=== PATIENT | female | born 1975 | race Two or more races ===

== ENCOUNTER 2024-09-25 18:42 | Emergency (ER) | payer MEDICAID, OTHER ==
[~2024-09-25] VITALS: Ht 172.7 cm; Wt 72.7 kg
--- NOTE | 2024-09-25 19:03 | ED.PDOC ---
History of Present Illness HPI Comments 48 year old female who came to ER via EMS for dizziness. Patient has history of hypertension, diabetes and dyslipidemia. States about an hour ago, relaxing at home, watching television, when she developed sudden onset dizziness, described as the room spinning, followed by bouts of nausea and vomiting. Patient was given Zofran EN route to the ER Chief Complaint: Dizziness Time Seen by MD: 19:03 Reviewed Notes: Manufacture Specialist Notes Allergies: Coded Allergies: Losartan (Verified Allergy, Unknown, 09/25/24) Metformin (Verified Allergy, Unknown, 09/25/24) Home Meds Active Scripts Potassium Chloride (Potassium Chloride ER) 10 Meq Tab, 10 MEQ PO BID for 10 Days, #20 TAB Prov:AUDELIA SHAH MD 09/25/24 Meclizine HCl (Meclizine) 25 Mg Chw, 25 MG PO Q6HP PRN, #30 CHW Prov:AUDELIA SHAH MD 09/25/24 Information Source: Patient, Emergency Med Personnel Mode of Arrival: EMS Severity: Moderate Timing: Minutes Duration: Since onset Past Medical History PAST MEDICAL HISTORY: Anxiety, DM, High Lipids, HTN Surgical History: Denies all surgeries 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 Family History Family History: Reviewed,noncontributory to illness Social History Smoker: Non-Smoker Alcohol: Denies ETOH Use Drugs: Denies Drug Use Lives In: Home Constitutional: denies: chills, diaphoresis, fatigue, fever, malaise, sweats, weakness, others EENTM: denies: blurred vision, double vision, ear bleeding, ear discharge, ear drainage, ear pain, ear ringing, eye pain, eye redness, hearing loss, mouth pain, mouth swelling, nasal discharge, nose bleeding, nose congestion, nose pain, photophobia, tearing, throat pain, throat swelling, voice changes, others Respiratory: denies: cough, hemoptysis, orthopnea, SOB at rest, shortness of breath, SOB with excertion, stridor, wheezing, others Cardiovascular: denies: chest pain, dizzy spells, diaphoresis, Dyspnea on exertion, edema, irregular heart beat, left arm pain, lightheadedness, palpita tions, PND, syncope, others Gastrointestinal: reports: nausea, vomiting; denies: abdomen distended, abdominal pain, blood streaked bowels, constipated, diarrhea, dysphagia, difficulty swallowing, hematemesis, melena, poor appetite, poor fluid intake, rectal bleeding, rectal pain, others Genitourinary: denies: abnormal vagina bleeding, burning, dyspareunia, dysuria, flank pain, frequency, hematuria, incontinence, pain, , vagina discharge, urgency, others Neurological: reports: dizziness; denies: fainting, headache, left sided numbness, left sided weakness, numbness, paresthesia, pre-existing deficit, right sided numbness, right sided weakness, seizure, speech problems, tingling, tremors, weakness, others Musculoskeletal: denies: back pain, gout, joint pain, joint swelling, muscle pain, muscle stiffness, neck pain, others Integumetry: denies: bruises, change in color, change in hair/nails, dryness, laceration, lesions, lumps, rash, wounds, others Allergic/Immunocompromised: denies: Difficulty Healing, Frequent Infections, Hives, Itching, others Hematologic/Lymphatic: denies: anemia, blood clots, easy bleeding, easy bruising, swollen glands, others Endocrine: denies: excessive hunger, excessive sweating, excessive thirst, excessive urination, flushing, intolerance to cold, intolerance to heat, unexplained weight gain, unexplained weight loss, others Psychiatric: denies: anxiety, bipolar disorder, depression, hopeless, panic disorder, schizophrenia, sleepless, suicidal, others Physical Exam General Appearance: No Apparent Distress, Normal HEENT: Normal ENT Inspection, Pharynx Normal, TMs Normal Neck: Full Range of Motion, Non-Tender, Normal, Normal Inspection Respiratory: Chest Non-Tender, Lungs Clear, No Accessory Muscle Use, No Respiratory Distress, Normal Breath Sounds Cardiovascular: No Edema, No JVD, No Murmur, No Gallop, Normal Peripheral Pulses, Regular Rate/Rhythm Breast Exam: Deferred Gastrointestinal: No Organomegaly, Non Tender, No Pulsatile Mass, Normal Bowel Sounds, Soft Genitalia: Deferred Pelvic: Deferred Rectal: Deferred Extremities: No calf tenderness, Normal capillary refill, Normal inspection, Normal range of motion, Non-tender, No pedal edema Musculoskeletal : Apperance: Normal Neurologic: Alert, rn perinatal II-XII nml as Tested, No Motor Deficits, Normal Affect, Normal Mood, No Sensory Deficits Cerebellar Function: Normal Reflexes: Normal Skin: Dry, Normal Color, Warm Lymphatic: No Adenopathy Was a procedure done? Was a procedure done?: No EKG EKG : Pulse Rate (adult): 58 Cardiac Rhythm: NSR Differential Dx Considerations may include: Anemia, electrolyte imbalance, dizziness, dehydration, vertigo, anxiety X-Ray, Labs, Meds, VS Vital Signs Date Time Temp Pulse Resp B/P (MAP) Pulse Ox O2 Delivery O2 Flow Rate FiO2 09/25/24 20:38 61 15 96 Room Air 09/25/24 20:38 97.9 61 15 144/81 (102) 96 97.9 09/25/24 19:03 58 09/25/24 18:57 58 09/25/24 18:44 98.9 68 14 128/88 100 98.9 Lab Test 09/25/24 19:16 Range/Units White Blood Count 8.9 4.4-10.8 10^3/uL Red Blood Count 4.73 4.0-5.20 10^6/uL Hemoglobin 14.4 12.2-16.2 g/dL Hematocrit 41.2 36.0-46.0 % Mean Corpuscular Volume 86.9 80.0-100.0 fL Mean Corpuscular Hemoglobin 30.4 28.0-32.0 pg Mean Corpuscular Hemoglobin Concent 34.9 32.0-36.0 g/dL Red Cell Distribution Width 13.7 11.8-14.3 % Platelet Count 259 140-450 10^3/uL Mean Platelet Volume 7.9 6.9-10.8 fL Neutrophils (%) (Auto) 61.5 37.0-80.0 % Lymphocytes (%) (Auto) 27.7 10.0-50.0 % Monocytes (%) (Auto) 7.2 0.0-12.0 % Eosinophils (%) (Auto) 2.8 0.0-7.0 % Basophils (%) (Auto) 0.8 0.0-2.0 % Neutrophils # (Auto) 5.5 1.6-8.6 10 ^3/uL Lymphocytes # (Auto) 2.5 0.4-5.4 10 ^3/uL Monocytes # (Auto) 0.6 0-1.3 10 ^3/uL Eosinophils # (Auto) 0.2 0-0.8 10 ^3/uL Basophils # (Auto) 0.1 0-0.2 10 ^3/uL Nucleated Red Blood Cells 0.1 % Sodium Level 137 136-145 mmol/L Potassium Level 3.1 L 3.5-5.1 mmol/L Chloride Level 101 98-107 mmol/L Carbon Dioxide Level 27 20-31 mmol/L Anion Gap 9 5-15 Blood Urea Nitrogen 17 9-23 mg/dL Creatinine 0.57 0.550-1.02 mg/dL Glomerular Filtration Rate Calc 111 >90 mL/min BUN/Creatinine Ratio 29.8 H 10.0-20.0 Serum Glucose 121 H 74-106 mg/dL Calcium Level 9.0 8.7-10.4 mg/dL Magnesium Level 2.1 1.6-2.6 mg/dL Total Bilirubin 2.1 H 0.2-1.0 mg/dL Aspartate Amino Transferase (AST) 31 13-40 U/L Alanine Aminotransferase (ALT) 53 H 7-40 U/L Alkaline Phosphatase 86 46-116 U/L Total Protein 7.4 5.7-8.2 g/dL Albumin 4.6 3.2-4.8 g/dL Current Medications Medications (Trade) Dose Ordered Sig/Ofelia Route Start Time Stop Time Status Last Admin Meclizine HCl (Antivert Tablet) 25 mg ONCE ONCE PO 09/25/24 19:00 09/25/24 19:01 DC 09/25/24 19:33 Potassium Chloride (Klor-Con Tablet) 20 meq ONCE ONCE PO 09/25/24 20:30 09/25/24 20:31 DC 09/25/24 20:37 Time of 1ST Reevaluation: 19:01 Reevaluation 1ST: Unchanged Patient Education/Counseling: Diagnosis, Treatment Family Education/Counseling: No Family Present SEPSIS Sepsis Screen Date sepsis recognized/suspect: Sep 25, 2024 Time Sepsis recognized/suspect: 1851 Recent Procedure: No On Antibiotic Therapy: No Respiratory Rate >20: No Heart Rate >90: No Temp<36 C (96.8 F) or >38.3 C: No SBP <90 or MAP <65 mmHG: No New Acute Mental Status Change: No Is the patient on CPAP, BIPAP,: No Physician Orders Electrocardigram (09/25/24 18:54) Head Without Contrast (09/25/24 18:58) Vital Signs Date Time Temp Pulse Resp B/P (MAP) Pulse Ox O2 Delivery O2 Flow Rate FiO2 09/25/24 20:38 61 15 96 Room Air 09/25/24 20:38 97.9 61 15 144/81 (102) 96 97.9 09/25/24 19:03 58 09/25/24 18:57 58 09/25/24 18:44 98.9 68 14 128/88 100 98.9 Laboratory Tests Test 09/25/24 19:16 White Blood Count 8.9 10^3/uL (4.4-10.8) Medications Medications Dose Ordered Sig/Ofelia Route Start Time Stop Time Status Last Admin Dose Admin Meclizine HCl 25 mg ONCE ONCE PO 09/25/24 19:00 09/25/24 19:01 DC 09/25/24 19:33 Potassium Chloride 20 meq ONCE ONCE PO 09/25/24 20:30 09/25/24 20:31 DC 09/25/24 20:37 Departure 1 Departure Time of Disposition: 21:00 Impression: Primary Impression: Hypokalemia Additional Impression: Vertigo Disposition: 01 HOME / SELF CARE / HOMELESS Condition: Stable e-Prescriptions Potassium Chloride (Potassium Chloride ER) 10 Meq Tab 10 MEQ PO BID for 10 Days, #20 TAB Prov: AUDELIA SHAH MD 09/25/24 Meclizine HCl (Meclizine) 25 Mg Chw 25 MG PO Q6HP PRN, #30 CHW Prov: AUDELIA SHAH MD 09/25/24 Discharged With: Self Critical Care Note Critical Care Time?: No Stability Stability form required: No Heart Score Heart Score: Heart Score Response (Comments) Value History N/A 0 EKG N/A 0 Age N/A 0 Risk Factors N/A 0 Troponin N/A 0 Total 0 I personally scribed for AUDELIA SHAH MD ([email or web address]) on 09/25/24 at 19:03. Electronically submitted by Shawn Montesinos ([email or web address]). AUDELIA SHAH MD Sep 25, 2024 19:03
[2024-09-25 19:27] LABS: Hematocrit 41.2 % (36.0-46.0); Hemoglobin 14.4 g/dL (12.2-16.2); Mean Corpuscular Hemoglobin 30.4 pg (28.0-32.0); Mean Corpuscular Volume 86.9 fL (80.0-100.0); Nucleated Red Blood Cells % 0.1 %
[2024-09-25] MEDS: MECLIZINE HCL 25 MG TAB PO ONE (19:33)
[2024-09-25 19:49] LABS: Alanine Aminotransferase 53 U/L (7-40); Albumin 4.6 g/dL (3.2-4.8); Alkaline Phosphatase 86 U/L (46-116); Anion Gap 9 (5-15); BUN/Creatinine Ratio 29.8 (10.0-20.0); Bilirubin, Total 2.1 mg/dL (0.2-1.0); Blood Urea Nitrogen 17 mg/dL (9-23); Calcium 9.0 mg/dL (8.7-10.4); Carbon Dioxide 27 mmol/L (20-31); Chloride 101 mmol/L (98-107); Glucose 121 mg/dL (74-106); Magnesium 2.1 mg/dL (1.6-2.6); Potassium 3.1 mmol/L (3.5-5.1); Sodium 137 mmol/L (136-145); Total Protein 7.4 g/dL (5.7-8.2)
--- NOTE | 2024-09-25 20:13 | DVH ---
COMPUTERIZED TOMOGRAPHY OF THE HEAD WITHOUT CONTRAST REASON FOR STUDY: vertigo COMPARISON: None TECHNIQUE: Helical tomographic scans were obtained through the brain. 2-D coronal and sagittal refor matted images are provided. Radiation optimization: All CT scans at this facility use at least one of these dose optimization techniques: Automated exposure control mA and/or kV adjustment per patient s ize (includes targeted exams where dose is matched to clinical indication) or iterative reconstructio n. RADIATION DOSE: CTDI: 55.28 mGy DLP: 965.01 mGy-cm FINDINGS: No suspicious intracranial hyperdensity to suggest acute blood. There are bilateral basal ganglia senescent calcifications. There is no mass effect nor midline shift. There is no hydrocephalu s. The suprasellar cistern is intact. The calvarium is intact. The visualized mastoid air cells and p aranasal sinuses are clear. IMPRESSION: No acute intracranial abnormality.
[2024-09-25] MEDS ORDERED: POTA-228 PO (20:23)
[2024-09-25] MEDS ORDERED: MECL25CH38 PO (20:23)
[2024-09-25] MEDS: POTASSIUM CHL 20 Meq TABLET PO ONE (20:37)
[2024-09-25 20:38] VITALS: BP 144/81; PULSE 61; RESP 15; TEMP 97.9; O2SAT 96
--- NOTE | 2024-09-27 10:22 | ECG ---
[facility] Test Date: 2024-09-25 Test Time: 18:57:45 Pat Name: XU ALEGRE Department: Room: Gender: F Manager Crisis: IC : 1975 Requested By: AUDELIA SHAH Order Number: [id number] Reading MD: Hermes Ortiz Measurements Intervals [place] Rate: 58 P: 43 CT: 167 QRS: 27 QRSD: 89 T: 43 QT: 455 QTc: 447 Interpretive Statements Sinus rhythm Electronically Signed On 09-27-2024 22:56:55 PDT by Hermes Ortiz Please click the below link to view image of tracing.
== END 2024-09-25 20:50 | disposition home or self-care (01) ==
LOC: ER 18:42 → EDBD 18:42 → ER 20:50
DX: E87.6 Hypokalemia (principal); R42 Dizziness and giddiness; E11.9 Type 2 diabetes mellitus without complications; I10 Essential (primary) hypertension; E78.5 Hyperlipidemia, unspecified; F41.9 Anxiety disorder, unspecified; Z79.899 Other long term (current) drug therapy; Z91.09 Other allergy status, other than to drugs and biological substances
CPT/HCPCS: 36415; 70450; 80053; 82947; 83735; 85025; 93005; 99284; J8597